=== PATIENT | female | born 1950 | race Caucasian/White ===

== ENCOUNTER → 2016-07-26 | Outpatient (CLI) | payer OTHER ==
--- NOTE | 2016-07-26 14:03 | DIAGNOSTIC IMAGING REPORT ---
RIGHT KNEE 2 VIEWS CLINICAL HISTORY: Right knee pain. FINDINGS: AP and crosstable lateral views of the right knee are obtained. No prior studies are available for comparison at the time of dictation. The skeletal structures are osteopenic. No fracture is seen. There is mild tricompartmental degenerative joint space narrowing, greatest at the medial and patellofemoral compartments. There are medial marginal osteophytes and beaking of the tibial spine. No joint effusion is identified. The overlying soft tissues are within normal limits. IMPRESSION: Osteopenia and mild degenerative change as above. No acute bony abnormality is seen. Electronically signed by: Berry Evans M.D. 07/26/2016 2:02 PM Dictated Date/Time: 07/26/2016 2:01 PM
== END | disposition home or self-care (01) ==
LOC: C.RADPV 13:49
PROVIDERS: ATTEND Family Medicine
DX: M25.561 Pain in right knee (principal); M85.861 Other specified disorders of bone density and structure, right lower leg

== ENCOUNTER → 2016-08-19 | Outpatient (CLI) | payer OTHER ==
[~2016-08-19] MED LIST: OPTIRAY 320 IV PRN
--- NOTE | 2016-08-19 09:13 | DIAGNOSTIC IMAGING REPORT ---
CT SCAN OF THE CHEST WITH IV CONTRAST CLINICAL HISTORY: Pulmonary nodule. COMPARISON STUDY: Chest CT dated 02/27/2016. TECHNIQUE: Following the IV administration of 92 cc of Optiray 320, CT scan of the thorax was performed from the thoracic inlet to the upper abdomen. Images are reviewed in the axial, sagittal, and coronal planes. IV contrast was administered without complication. CT DOSE: 278.25 mGy.cm FINDINGS: Thyroid: Imaged portions of the thyroid gland are normal in size and attenuation. Thoracic aorta: The thoracic aorta is normal in caliber and demonstrates standard 3-vessel arch anatomy. No dissection is seen. Pulmonary vasculature: The pulmonary trunk is normal in caliber. There are no filling defects identified in the central pulmonary vessels to indicate pulmonary embolus. Note that this examination was not protocoled for evaluation of the pulmonary arteries. Heart: The heart is normal in size and configuration, and without pericardial effusion. Lungs and pleural spaces: A small fat-containing Bochdalek hernia is identified the right lung base. There is no lobar consolidation or pleural effusion. The trachea and central airways are clear. Numerous calcified granulomas are identified. There is increasing irregular branching airspace nodularity identified in the right lower lobe on image #177. Foci of clustered nodularity measure up to 2.0 cm. A 3 mm left lower lobe nodule image #143 is unchanged. Small foci of tree-in-bud nodularity are seen within the left upper lobe on image #104 and in the left lower lobe on image #116. Suture material is identified in the right middle lobe. Mediastinum: There is no mediastinal lymphadenopathy. Calcified mediastinal lymph nodes are observed. Yvrose: Clear. There are calcified hilar lymph nodes. Axillae: There is no axillary lymphadenopathy. Upper abdomen: There is a 1.1 cm cyst in the right hepatic lobe. 2 additional hepatic hypodensities in the right lobe seen on images #270 and #314 do not meet criteria for cysts cyst and likely represent small hemangiomas. These are unchanged. There is evidence of hepatic steatosis. A small hiatal hernia is identified. Skeletal structures: The skeletal structures are osteopenic. No lytic or blastic bony lesions are seen. IMPRESSION: 1. Increasing irregular foci of airspace nodularity are identified in the right lower lobe as compared to 02/27/2016. The appearance strongly favors a chronic infectious/inflammatory process. Neoplasm is considered less likely but is not excluded. Clinical correlation will be required and bronchoscopy may provide further information if clinically warranted. At a minimum, continued CT follow-up is advised. 2. Foci of tree-in-bud nodularity are seen in the left upper and left lower lobes. This also suggests a chronic infectious/inflammatory process, and is similar to previous. 3. Suture material is seen in the right middle lobe. Correlation with the patient's surgical history be required. 4. No lobar consolidation or pleural effusion is ill-defined. 5. There is evidence of remote granuloma is in flexion. 6. Hepatic steatosis. 7. Additional changes as above. Electronically signed by: Berry Evans M.D. 08/19/2016 9:11 AM Dictated Date/Time: 08/19/2016 9:03 AM
== END | disposition home or self-care (01) ==
LOC: C.CTS 08:40
PROVIDERS: ATTEND Internal Medicine Pulmonary Disease
DX: R91.1 Solitary pulmonary nodule (principal); K76.0 Fatty (change of) liver, not elsewhere classified

== ENCOUNTER → 2016-12-07 | Outpatient (CLI) | payer OTHER ==
--- NOTE | 2016-12-07 11:40 | DIAGNOSTIC IMAGING REPORT ---
(CHEST) THORAX WITHOUT CT DOSE: 232.27 mGy.cm HISTORY: R91.1 Pulmonary nodule be done in 4 [id number] TECHNIQUE: Multiaxial CT images of the chest were performed without contrast. A dose lowering technique was utilized adhering to the principles of ALARA. COMPARISON: Chest CT 08/19/2016. FINDINGS: No pleural effusions. No pneumothorax. The central airways are patent. Stable 4 mm nodule within the left lower lobe on image 129. Right upper and lower lobe calcified granulomas remain unchanged. Small patchy/nodular airspace opacity within the left upper lobe have slightly progressed. Small area of tree-in-bud nodular opacities within the superior segment of the left lower lobe remains unchanged. Slight improvement in the irregular/nodular focal airspace opacity within the periphery of the right lower lobe. Dominant focal nodular density measures 7 mm, previously measuring 10 mm. A few scattered tree-in-bud nodular airspace opacities within the right upper lobe. No suspicious lytic or blastic osseous lesions. Calcified mediastinal and hilar lymph nodes are again noted. Stable subcentimeter mediastinal lymph nodes. The heart is normal in size. Tiny hiatus hernia. Normal caliber thoracic aorta. The unenhanced spleen, and adrenal glands are unremarkable. Stable 9 mm hypodense lesion within the left hepatic dome. This is too small to characterize but favors a hemangioma. IMPRESSION: 1. Slight improvement in the irregular/nodular focal airspace opacity within the periphery the right lower lobe. This favors a chronic infectious process. Continued six-month chest CT follow is recommended. 2. A few scattered tree-in-bud nodular airspace opacities within the lungs. The majority are similar to the prior study. Slight progression of the small patchy/nodular airspace opacities within the left upper lobe. These findings favor a mild chronic atypical infectious process. . 3. Stable 4 mm indeterminate pulmonary nodule within the left lower lobe Electronically signed by: Tani Dooley M.D. 12/07/2016 11:39 AM Dictated Date/Time: 12/07/2016 11:29 AM
== END | disposition home or self-care (01) ==
LOC: C.CTS 10:50
PROVIDERS: ATTEND Internal Medicine Pulmonary Disease
DX: R91.1 Solitary pulmonary nodule (principal); R91.8 Other nonspecific abnormal finding of lung field

== ENCOUNTER → 2017-03-22 | Outpatient (CLI) | payer OTHER | END | disposition home or self-care (01) | LOC: C.PAPS 09:37 | PROVIDERS: ATTEND Family Medicine | DX: Z00.00 Encounter for general adult medical examination without abnormal findings (principal) ==

== ENCOUNTER → 2017-03-22 | Outpatient (CLI) | payer OTHER ==
--- NOTE | 2017-03-25 08:12 | MAMMOGRAPHY REPORT ---
BILATERAL FIRST EVER DIGITAL SCREENING MAMMOGRAM TOMOSYNTHESIS WITH CAD: 03/22/2017 CLINICAL HISTORY: Baseline examination. Patient has no complaints. TECHNIQUE: Breast tomosynthesis in addition to standard 2D mammography was performed. Current study was also evaluated with a Computer Aided Detection (CAD) system. COMPARISON: No prior exams were available for comparison. BREAST COMPOSITION: The tissue of both breasts is heterogeneously dense, which may obscure small mas ses. FINDINGS: There are a few benign coarse calcifications in the right breast. No suspicious mass, arch itectural distortion or cluster of suspicious microcalcifications is seen. IMPRESSION: ACR BI-RADS CATEGORY 1: NEGATIVE There is no mammographic evidence of malignancy. A 1 year screening mammogram is recommended. The pa tient will receive written notification of the results. Approximately 10% of breast cancers are not detected with mammography. A negative mammographic report should not delay biopsy if a clinically suggestive mass is present. Kathy Kuo M.D. ay/:03/22/2017 15:25:13 Mail Technician: Mary Ferguson, [facility] letter sent: Normal 1/2 BI-RADS Code: ACR BI-RADS Category 1: Negative
== END | disposition home or self-care (01) ==
LOC: C.MAMM 13:11
PROVIDERS: ATTEND Family Medicine
DX: Z12.31 Encounter for screening mammogram for malignant neoplasm of breast (principal)

== ENCOUNTER → 2017-06-13 | Outpatient (CLI) | payer OTHER ==
--- NOTE | 2017-06-13 12:31 | DIAGNOSTIC IMAGING REPORT ---
(CHEST) THORAX WITHOUT CLINICAL HISTORY: 66 years-old Female presenting with R91.1 Pulmonary nodule. TECHNIQUE: Multidetector CT imaging of the chest was performed without the use of intravenous contrast. IV contrast: None. A dose lowering technique was used consistent with the principles of ALARA (as low as reasonably achievable). COMPARISON: 12/07/2016. CT DOSE (mGy.cm): The estimated cumulative dose is 259.58 mGy.cm. FINDINGS: Wirer Maintenance topogram: Unremarkable. On soft tissue windows, normal thyroid and thoracic inlet. Calcified mediastinal and hilar lymphadenopathy again noted. Evaluation of the patrica limited without intravenous contrast. Normal aorta. Normal heart size. No pericardial or pleural effusion. Upper abdomen normal. On lung windows, decreased tree-in-bud nodular opacities in the lateral basal and anterobasal right lower lobe. However, interval increase in tree-in-bud opacities in the posterior paramediastinal right upper lobe. Patchy similar opacities in the posterior apical left upper lobe are stable to slightly decreased from prior. Multiple calcified granulomata. No evidence of bronchiectasis though mild bronchial wall thickening may be present. Central airways patent. On bone windows, degenerative changes of the spine. IMPRESSION: 1. Overall stable to slight decrease in multifocal nodular/tree-in-bud opacities. The appearance favors a chronic infectious bronchiolitis such as mycobacterium avium intracellulare or mycoplasma among other etiologies. Slight interval worsening of opacities in the posterior segment of the right upper lobe. 2. Calcified hilar and mediastinal lymph nodes as well as calcified granulomata consistent with chronic granulomatous disease. Electronically signed by: Rod Woodson M.D. 06/13/2017 12:30 PM Dictated Date/Time: 06/13/2017 12:21 PM
== END | disposition home or self-care (01) ==
LOC: C.CTS 11:57
PROVIDERS: ATTEND Internal Medicine Pulmonary Disease
DX: R91.1 Solitary pulmonary nodule (principal)